=== PATIENT | female | born 1985 | race Caucasian/White ===

== ENCOUNTER 2016-04-11 10:30 | Emergency (ER) | payer OTHER ==
[~2016-04-11] VITALS: Ht 162.6 cm; Wt 57.5 kg
[~2016-04-11 10:30] MED LIST: COLACE100 MG PO; FLOMAX0.4 MG PO; KEFLEX500 MG PO; LORAZEPAM1 MG PO; MACRODANTIN100 MG PO; MOTRIN800 MG PO; NAPROSYN-EC500 MG PO; PAXIL10 MG PO; PERCOCET 5/31 TABLET PO; VYVANSE40 MG PO; WELLBUTRIN XL300 MG PO; XANAX2 MG; ZOFRAN ODT4 MG PO; ZOFRAN4 MG PO; ZOFRAN8 MG PO; ZOLOFT100 MG
[2016-04-11] MEDS ORDERED: FIORICET WI1 CAPSULE PO (12:55)
[2016-04-11 13:04] VITALS: BP 96/57
== END 2016-04-11 13:21 | disposition home or self-care (01) ==
LOC: EME 10:30
DX: G43.909 Migraine, unspecified, not intractable, without status migrainosus (principal); F17.200 Nicotine dependence, unspecified, uncomplicated
CPT/HCPCS: 99281; 99284; J1885; J2765; J7030

== ENCOUNTER 2016-09-05 15:41 | Emergency (ER) | payer OTHER ==
[~2016-09-05] VITALS: Ht 162.6 cm; Wt 55.5 kg
[~2016-09-05 15:41] MED LIST changes: +FIORICET WI1 CAPSULE PO
[2016-09-05] MEDS ORDERED: ULTRAM50 MG PO (18:00)
[2016-09-05 18:40] VITALS: BP 119/86
== END 2016-09-05 18:51 | disposition home or self-care (01) ==
LOC: EME 15:41
PROC: 2W38X1Z Immobilization of Right Upper Extremity using Splint (ICD-10-PCS; principal; 2016-09-05)
DX: S62.652A Nondisplaced fracture of middle phalanx of right middle finger, initial encounter for closed fracture (principal); S62.654A Nondisplaced fracture of middle phalanx of right ring finger, initial encounter for closed fracture; S62.656A Nondisplaced fracture of middle phalanx of right little finger, initial encounter for closed fracture; X58.XXXA Exposure to other specified factors, initial encounter; Y93.6A Activity, physical games generally associated with school recess, summer camp and children
CPT/HCPCS: 73130; 99281; 99283

== ENCOUNTER 2016-10-15 00:14 | Emergency (ER) | payer OTHER ==
[~2016-10-15] VITALS: Ht 162.6 cm; Wt 52.3 kg
[~2016-10-15 00:14] MED LIST changes: +ULTRAM50 MG PO
[2016-10-15] MEDS ORDERED: NORCO 5/3251 TABLET PO (01:09)
[2016-10-15 01:22] VITALS: BP 129/86
== END 2016-10-15 01:27 | disposition home or self-care (01) ==
LOC: EME 00:14
DX: S70.01XA Contusion of right hip, initial encounter (principal); Y04.8XXA Assault by other bodily force, initial encounter; Y07.03 Male partner, perpetrator of maltreatment and neglect; F17.200 Nicotine dependence, unspecified, uncomplicated; Z87.81 Personal history of (healed) traumatic fracture
CPT/HCPCS: 73502; 99281; 99284

== ENCOUNTER 2017-07-01 21:42 | Emergency (ER) | payer OTHER ==
[~2017-07-01] VITALS: Ht 162.6 cm; Wt 56.7 kg
[~2017-07-01 21:42] MED LIST changes: +NORCO 5/3251 TABLET PO
[2017-07-02] MEDS ORDERED: ULTRAM50 MG PO (01:00)
[2017-07-02] MEDS ORDERED: AUGMENTIN875 MG PO (01:00)
[2017-07-02 01:01] VITALS: BP 121/85
== END 2017-07-02 01:06 | disposition home or self-care (01) ==
LOC: EME 21:42
DX: S00.11XA Contusion of right eyelid and periocular area, initial encounter (principal); Y00.XXXA Assault by blunt object, initial encounter
CPT/HCPCS: 70450; 70486; 99281; 99284; G0480

== ENCOUNTER 2017-07-11 09:02 | Emergency (ER) | payer OTHER ==
[~2017-07-11] VITALS: Ht 162.6 cm; Wt 58.0 kg
[~2017-07-11 09:02] MED LIST changes: +AUGMENTIN875 MG PO
[2017-07-11] MEDS ORDERED: MOTRIN800 MG PO (09:21)
[2017-07-11] MEDS ORDERED: PEN-VEE K,VEET500 MG PO (09:21)
[2017-07-11 10:03] VITALS: BP 128/88
== END 2017-07-11 10:08 | disposition home or self-care (01) ==
LOC: EME 09:02
DX: K08.89 Other specified disorders of teeth and supporting structures (principal); N94.6 Dysmenorrhea, unspecified
CPT/HCPCS: 99281; 99284